=== PATIENT | female | born 1955 | race Caucasian/White ===

== ENCOUNTER 2016-11-21 12:59 | Emergency (ER) | payer BC ==
[2016-11-21 14:29] VITALS: BP 113/57
--- NOTE | 2016-11-21 15:18 | EDM.PDOC ---
ED HPI Trauma - General Chief Complaint: Lower Extremity Injury/Pain Stated Complaint: [id number] FELL AT HOME TRIPPED Time Seen by Provider: 11/21/16 15:17 Source: Reports: Patient, RN, RN notes reviewed History Limitations: Reports: No limitations - History of Present Illness INITIAL COMMENTS - FREE TEXT/NARRATIVE: Arrives by POV with complaint of right knee injury and nose injury sustained from a ground level fall at home today. Unable to bear weight on right knee. Denies LOC. Symptom Onset Date: 11/21/16 Occurred When: just prior to arrival Occurred Where: home Method of Injury: fall Severity: severe Pain/Injury Location: Reports: lower extremity, right Consciousness: Reports: no loss of consciousness Associated Symptoms: Reports: no other symptoms Allergies/ADRs: Allergies Penicillins Allergy (Verified 11/21/16 14:30) Itching Home Medications: Ambulatory Orders Aspirin [Rowena Chewable] 81 mg PO DAILY 03/14/14 [Confirmed 11/21/16] Chlorthalidone [Chlorthalidone] 25 mg PO DAILY 03/14/14 [Confirmed 11/21/16] Lisinopril [Prinivil] 10 mg PO DAILY 03/14/14 [Confirmed 11/21/16] Omeprazole [Omeprazole] 20 mg PO DAILY 03/14/14 [Confirmed 11/21/16] metFORMIN [Glucophage] 1,000 mg PO BID 03/14/14 [Confirmed 11/21/16] Dulaglutide [Trulicity] 0.75 mg SQ WEEKLY 11/21/16 [Confirmed 11/21/16] Insulin Glarg,Human.Rec.Analog [Lantus] 85 unit SQ DAILY 11/21/16 [Confirmed 12/04] Past Medical History HEENT History: Reports: None Cardiovascular History: Reports: None Respiratory History: Reports: None Gastrointestinal History: Reports: GERD, Hemorrhoids Genitourinary History: Reports: None 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 Musculoskeletal History: Reports: None Neurological History: Reports: None Psychiatric History: Reports: None Endocrine/Metabolic History: Reports: Diabetes, type II Hematologic History: Reports: None Immunologic History: Reports: None Oncologic (Cancer) History: Reports: None Dermatologic History: Reports: None - Infectious Disease History Infectious Disease History: Reports: None - Past Surgical History Head Surgeries/Procedures: Reports: None Social & Family History - Family History Family Medical History: Noncontributory - Tobacco Use Smoking Status *Q: Never Smoker - Caffeine Use Caffeine Use: Reports: Soda - Recreational Drug Use Recreational Drug Use: No - Living Situation & Occupation Living situation: Reports: with family Review of Systems - Review of Systems Review Of Systems: ROS reveals no pertinent complaints other than HPI. Trauma Exam - Physical Exam Exam: See Below Exam Limited By: No limitations General Appearance: Reports: obese Head: Reports: atraumatic, normocephalic Eyes: bilateral eye: normal inspection Ears: Reports: normal external exam, normal canal, hearing grossly normal, normal TMs Nose: Reports: other (nose swelling, bruising, dried blood in right nare, otherwise normal.) Neck: Reports: non-tender, full range of motion, normal alignment, normal inspection Respiratory Exam: Reports: no respiratory distress, lungs clear, normal breath sounds Cardiovascular: Reports: normal peripheral pulses, regular rate, rhythm, no edema, no gallop, no JVD, no murmur, no rub GI/Abdominal: Reports: normal bowel sounds, soft, non tender, no organomegaly, no distention, no abnormal bruit, no mass Back: Reports: full range of motion, normal inspection, non-tender Extremities: Reports: other (right anterior knee tenderness, faint bruising and mild swelling. Unable to bear weight on right knee. Decreased ROM secondary to pain. 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, no motor/sensory deficits, alert , normal mood/affect, oriented x 3 Course - Vital Signs Last Recorded V/S: Last Vital Signs Temp 35.9 C 11/21/16 14:27 Pulse 83 11/21/16 14:27 Resp 18 11/21/16 14:27 BP 113/57 L 11/21/16 14:27 Pulse Ox 97 11/21/16 14:27 - Orders/Labs/Meds Orders: Active Orders 24 hr Category Date Time Status Immobilizer [RC] ASDIRECTED Care 11/21/16 15:51 Active Vaccines to be Administered [RC] PER UNIT ROUTINE Care 11/21/16 15:34 Active DME for Discharge [COMM] Routine Oth 11/21/16 15:51 Ordered Meds: Medications Discontinued Medications Generic Name Dose Route Start Last Admin Trade Name Freq PRN Reason Stop Dose Admin Hydrocodone Bitart/Acetaminophen 1 tab 11/21/16 15:52 11/21/16 16:09 Farner 325-10 Mg PO 11/21/16 15:53 1 tab ONETIME ONE Administration Diphtheria/Tetanus/Acell Pertussis 0.5 ml 11/21/16 15:29 11/21/16 15:50 Adacel IM 11/21/16 15:30 0.5 ml .ONCE ONE Administration Ondansetron HCl 4 mg 11/21/16 15:52 11/21/16 16:09 Zofran Odt PO 11/21/16 15:53 4 mg ONETIME ONE Administration - Radiology Interpretation Free Text/Narrative:: Right knee: Per report comminuted but not displaced patella fracture. CT maxillofacial: Per report reveals no nasal bone fractures. Departure - Departure Time of Disposition: 16:27 Disposition: Home, Self-Care 01 Condition: fair Clinical Impression: Fall as cause of accidental injury at home as place of occurrence Patella fracture Qualifiers: Encounter type: initial encounter Fracture type: closed Fracture morphology: comminuted Fracture alignment: nondisplaced Laterality: right Qualified Code(s) : S82.044A - Nondisplaced comminuted fracture of right patella, initial encounter for closed fracture Contusion, nose Qualifiers: Encounter type: initial encounter Qualified Code(s): S00.33XA - Contusion of nose, initial encounter Instructions: Facial or Scalp Contusion, [id number], Patellar Fracture, Adult Forms: ED Department Discharge Additional Instructions: Farner 5mg/325mg. Use knee immobilizer and crutches. Rest and elevate right knee. Call [facility] to schedule an appointment for reevaluation. - My Orders Last 24 Hours: My Active Orders 11/21/16 15:34 Vaccines to be Administered [RC] PER UNIT ROUTINE 11/21/16 15:51 Immobilizer [RC] ASDIRECTED DME for Discharge [COMM] Routine - Assessment/Plan Last 24 Hours: My Active Orders 11/21/16 15:34 Vaccines to be Administered [RC] PER UNIT ROUTINE 11/21/16 15:51 Immobilizer [RC] ASDIRECTED DME for Discharge [COMM] Routine
[2016-11-21] MEDS ORDERED: Diphtheria,Pertussis(Acell),Tetanus Vaccine 0.5 ML SDV IM ONE (15:29)
--- NOTE | 2016-11-21 15:49 | CT ---
Clinical history: 60-year-old female facial injury (fall). Scan technique: Volume acquisition of data unenhanced CT scan facial bones obtained with patient cherrie rizzo supine on the Siemens multi slice CT scanner [place], [place]. All data archived in the PACS system for storage, reformatting and study. Interpretation: Some soft tissue swelling (depression distal end of the nasal spine) but no sign of acute fracture nasal bone or disruption of the lateral nasal ala symmetry. Nasal septum is straight in the midline and nonedematous normal-appearing nasal turbinates. Asymmetric tiny dependent air-fluid level left maxillary antrum but no signs of sinus wall fracture or abnormal mucoperiosteal inflammation. Anterior maxillary spine intact. Symmetric clear pneumatization of the paranasal and mastoid sinuses. Symmetric normal-appearing optic globes and orbits. No foreign bodies. Hyperostosis frontalis interna. Normal temporomandibular joints. Satisfactory dental occlusion. CONCLUSION: No acute fractures.
--- NOTE | 2016-11-21 15:51 | CR ---
Clinical history: 60-year-old female injured right knee (fall). Interpretation: Abnormal. Large suprapatellar bursal effusion and comminuted but nondisplaced fracture right patella. 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 (Fabella posteri buddy). No sign of other fracture or joint dislocation.
[2016-11-21] MEDS ORDERED: Acetaminophen/HYDROcodone 325-10 MG Tab PO ONE (15:52)
[2016-11-21] MEDS ORDERED: Ondansetron 4 MG Tab.DIS PO ONE (15:52)
== END 2016-11-21 16:40 | disposition home or self-care (01) ==
LOC: DL.ED 12:59
DX: S82.044A Nondisplaced comminuted fracture of right patella, initial encounter for closed fracture (principal); S00.33XA Contusion of nose, initial encounter; K21.9 Gastro-esophageal reflux disease without esophagitis; E11.9 Type 2 diabetes mellitus without complications; Z23 Encounter for immunization; Z88.0 Allergy status to penicillin; W18.09XA Striking against other object with subsequent fall, initial encounter; Y92.009 Unspecified place in unspecified non-institutional (private) residence as the place of occurrence of the external cause
CPT/HCPCS: 70486; 73562; 90715; 99284; A9270